=== PATIENT | female | born 1990 | race African-American/Black ===

== ENCOUNTER 2017-01-24 18:27 | Emergency (ER) | payer OTHER ==
[~2017-01-24] VITALS: Ht 160 cm; Wt 104.3 kg
[2017-01-24 19:03] VITALS: BP 163/72
--- NOTE | 2017-01-24 19:12 | PHYS DOC ---
Past Medical History Past Medical History: No Pertinent History Past Surgical History: No Surgical History Alcohol Use: None Drug Use: None Adult General Chief Complaint Chief Complaint: ANKLE PROBLEM HPI HPI Patient is a 27 year old female presents to the emergency department with complaints of left ankle and left calcaneus pain. Patient states she was sitting in a folding laundry yesterday when it gave out and she fell on the left lower extremity. She states that she's had pain since that time. She is here now seeking further evaluation Review of Systems Review of Systems Constitutional: Denies fever or chills [] Eyes: Denies change in visual acuity, redness, or eye pain [] HENT: Denies nasal congestion or sore throat [] Respiratory: Denies cough or shortness of breath [] Cardiovascular: No additional information not addressed in HPI [] GI: Denies abdominal pain, nausea, vomiting, bloody stools or diarrhea [] : Denies dysuria or hematuria [] Musculoskeletal: Left ankle and left foot pain Integument: Denies rash or skin lesions [] Neurologic: Denies headache, focal weakness or sensory changes [] Endocrine: Denies polyuria or polydipsia [] Current Medications Current Medications Current Medications Medications (Trade) Dose Ordered Sig/Caty Start Time Stop Time Status Last Admin Dose Admin Naproxen (Naprosyn) 500 mg STAT ONCE 01/24/17 19:15 01/24/17 19:16 DC 01/24/17 19:19 500 MG Allergies Allergies Allergies Coded Allergies Type Severity Reaction Last Updated Verified No Known Drug Allergies 01/24/17 No Physical Exam Physical Exam Constitutional: Well developed, well nourished, no acute distress, non-toxic appearance. [] Neck: Normal range of motion, no tenderness, supple, no stridor. [] Cardiovascular:Heart rate regular rhythm, no murmur [] Lungs & Thorax: Bilateral breath sounds clear to auscultation [] Abdomen: Bowel sounds normal, soft, no tenderness, no masses, no pulsatile masses. [] Skin: Warm, dry, no erythema, no rash. [] Back: No tenderness, no CVA tenderness. [] Extremities: Left lower extremity exam: Left knee exam unremarkable. Left ankle without swelling or ecchymosis. Mild tenderness to palpate over the lateral malleolus. She does have tenderness to palpate over the calcaneus, Achilles tendon is intact. Neurovascular intact distally. Neurologic: Alert and oriented X 3, normal motor function, normal sensory function, no focal deficits noted. [] Current Patient Data Vital Signs Vital Signs Date Time Temp Pulse Resp B/P (MAP) Pulse Ox O2 Delivery O2 Flow Rate FiO2 01/24/17 19:03 98.2 73 18 98 Room Air 98.2 EKG EKG [] Radiology/Procedures Radiology/Procedures Left ankle and left calcaneus negative for acute bony abnormality[] Course & Med Decision Making Course & Med Decision Making Pertinent Labs and Imaging studies reviewed. (See chart for details) []She'll be discharged with Richard bandage and crutches for weightbearing as tolerated. She'll be given Naprosyn 500 mg one by mouth twice a day when necessary for pain. Follow-up with her primary care provider in 5-7 days, sooner if problems arise. Dragon Disclaimer Dragon Disclaimer This electronic medical record was generated, in whole or in part, using a voice recognition dictation system. Departure Departure Impression: Primary Impression: Ankle sprain Additional Impression: Contusion, foot Disposition: 01 HOME, SELF-CARE Condition: STABLE Referrals: [facility] Patient Instructions: Ankle Sprain, Contusion, Elastic Bandage and RICE Additional Instructions: Be used for weightbearing as tolerated. Scripts Naproxen (NAPROSYN) 500 Mg Tablet 500 MG PO BID Y for PAIN, #20 TAB Prov: CASI COPELAND APRN 01/24/17 Problem Qualifiers Primary Impression: Ankle sprain Encounter type: initial encounter Involved ligament of ankle: unspecified ligament Laterality: left Qualified Codes: S93.402A - Sprain of unspecified ligament of left ankle, initial encounter Additional Impression: Contusion, foot Encounter type: initial encounter Laterality: left Qualified Codes: S90.32XA - Contusion of left foot, initial encounter CASI COPELAND APRN Jan 24, 2017 19:12
[2017-01-24] MEDS ORDERED: NAPROXEN 500 MG TABLET PO ONE (19:15)
[2017-01-24] MEDS ORDERED: NAPR500T PO (20:04)
--- NOTE | 2017-01-25 08:13 | RAD ---
Indication fall, pain. AP and lateral views of the left calcaneus were obtained. No bony abnormality is seen
--- NOTE | 2017-01-25 08:17 | RAD ---
Indication fall, pain. AP oblique and lateral views of the left ankle were obtained. No bony abnormality is seen
== END 2017-01-24 20:12 | disposition home or self-care (01) ==
LOC: ER 18:27
DX: S93.402A Sprain of unspecified ligament of left ankle, initial encounter (principal); W18.39XA Other fall on same level, initial encounter; Y99.8 Other external cause status; Y93.89 Activity, other specified; Y92.89 Other specified places as the place of occurrence of the external cause
CPT/HCPCS: 73610; 73650; 99284

== ENCOUNTER 2017-03-02 17:53 | Emergency (ER) | payer OTHER ==
[~2017-03-02] VITALS: Ht 162.6 cm; Wt 104.3 kg
[~2017-03-02 17:53] MED LIST: NAPR500T PO
[2017-03-02] MEDS ORDERED: PROAIR RESPICL90 MCG IH (18:38)
[2017-03-02] MEDS ORDERED: AZIT250T6 PO (18:38)
[2017-03-02] MEDS ORDERED: PRED50TA PO (18:38)
[2017-03-02] MEDS ORDERED: BENZ100C PO (18:38)
--- NOTE | 2017-03-02 18:38 | PHYS DOC ---
Past Medical History Past Medical History: No Pertinent History Past Surgical History: No Surgical History Alcohol Use: None Drug Use: None Adult General Chief Complaint Chief Complaint: SORE THROAT HPI HPI Patient is a 27 year old female who presents with a sore throat and coughing for 2 weeks. Patient has history of smoking. Patient denies any fever. Review of Systems Review of Systems Constitutional: Denies fever or chills [] Eyes: Denies change in visual acuity, redness, or eye pain [] HENT: sore throat []Denies nasal congestion Respiratory: Reports cough denies shortness of breath [] Cardiovascular: No additional information not addressed in HPI [] GI: Denies abdominal pain, nausea, vomiting, bloody stools or diarrhea [] : Denies dysuria or hematuria [] Musculoskeletal: Denies back pain or joint pain [] Integument: Denies rash or skin lesions [] Neurologic: Denies headache, focal weakness or sensory changes [] All other systems were reviewed and found to be within normal limits, except as documented in this note. Allergies Allergies Allergies Coded Allergies Type Severity Reaction Last Updated Verified No Known Drug Allergies 01/24/17 No Physical Exam Physical Exam Constitutional: Well developed, well nourished, no acute distress, non-toxic appearance. [] HENT: Normocephalic, atraumatic, bilateral external ears normal, oropharynx moist, no oral exudates, nose normal. Posterior fornix with mild erythema, her voice is hoarse Eyes: PERRLA, EOMI, conjunctiva normal, no discharge. [] Neck: Normal range of motion, no tenderness, supple, no stridor. [] Cardiovascular:Heart rate regular rhythm, no murmur [] Lungs & Thorax: Bilateral breath sounds clear to auscultation [] Abdomen: Bowel sounds normal, soft, no tenderness, no masses, no pulsatile masses. [] Skin: Warm, dry, no erythema, no rash. [] Back: No tenderness, no CVA tenderness. [] Extremities: No tenderness, no cyanosis, no clubbing, ROM intact, no edema. [] Neurologic: Alert and oriented X 3, normal motor function, normal sensory function, no focal deficits noted. [] Psychologic: Affect normal, judgement normal, mood normal. [] Current Patient Data Vital Signs Vital Signs Date Time Temp Pulse Resp B/P (MAP) Pulse Ox O2 Delivery O2 Flow Rate FiO2 03/02/17 17:58 98.5 86 18 97 Room Air 98.5 EKG EKG [] Radiology/Procedures Radiology/Procedures [] Course & Med Decision Making Course & Med Decision Making Pertinent Labs and Imaging studies reviewed. (See chart for details) Patient has laryngitis, pharyngitis and bronchitis. Negative rapid strep. Discharged with azithromycin albuterol inhaler Tessalon Perles and prednisone for 5 days. Encouraged to consider smoking cessation. Dragon Disclaimer Dragon Disclaimer This electronic medical record was generated, in whole or in part, using a voice recognition dictation system. Departure Departure Impression: Primary Impression: Laryngitis, acute Additional Impressions: Acute pharyngitis Acute bronchitis Smoking addiction Disposition: 01 HOME, SELF-CARE Condition: STABLE Referrals: NO PCP (PCP) follow uip with your doctor in one week Patient Instructions: Acute Bronchitis, [id number], Laryngitis, [id number] , Smoking Cessation, Viral and Bacterial Pharyngitis Additional Instructions: You were seen for laryngitis, pharyngitis and bronchitis. Consider smoking cessation. Take the prescribed medications as ordered. Use saltwater gargles for sore throat. Take Tylenol or Motrin for pain or fever. Scripts Azithromycin (AZITHROMYCIN TABLET) 250 Mg Tablet 1 PKG PO UD, #6 TAB Prov: ERICH SANDOVAL APRN 03/02/17 Prednisone (PREDNISONE) 50 Mg Tablet 1 TAB PO DAILY, #5 TAB Prov: ERICH SANDOVAL APRN 03/02/17 Benzonatate (TESSALON PERLE) 100 Mg Capsule 1 CAP PO TID, #30 CAP Prov: ERICH SANDOVAL APRN 03/02/17 Albuterol Sulfate (Proair Respiclick) 90 Mcg Aer.pow.ba 1 PUFF IH PRN Q6HRS Y for SHORTNESS OF BREATH, #1 INHALER Prov: ERICH SANDOVAL APRN 03/02/17 Problem Qualifiers Additional Impressions: Acute pharyngitis Pharyngitis/tonsillitis etiology: unspecified etiology Qualified Codes: J02.9 - Acute pharyngitis, unspecified Acute bronchitis Bronchitis organism: unspecified organism Qualified Codes: J20.9 - Acute bronchitis, unspecified ERICH SANDOVAL APRN Mar 02, 2017 18:38
[2017-03-03 07:38] LABS: NEGATIVE OBC STREP NEG; POSITIVE OBC STREP POS
== END 2017-03-02 18:49 | disposition home or self-care (01) ==
LOC: ER 17:53
DX: J20.9 Acute bronchitis, unspecified (principal); J04.0 Acute laryngitis; J02.9 Acute pharyngitis, unspecified; F17.200 Nicotine dependence, unspecified, uncomplicated; Z87.891 Personal history of nicotine dependence
CPT/HCPCS: 87070; 87880; 99283

== ENCOUNTER 2017-09-06 15:59 | Emergency (ER) | payer SELFPAY, OTHER ==
[2017-09-06 16:16] LABS: URINE HCG POC HCG NEGATIVE (Negative)
[2017-09-06] MEDS: IV NORMAL SALINE 1000ML BAG 1,000 ML IV (16:54)
[2017-09-06] MEDS: KETOROLAC 30 MG/ML INJ. IV (16:55)
[2017-09-06] MEDS: METOCLOPRAMIDE HCL 10 MG/2 ML VIAL. IV (16:55)
[2017-09-06] MEDS: diphenhydrAMINE 50 MG/ML VIAL IVP (16:55)
== END 2017-09-06 17:40 | disposition home or self-care (01) ==
LOC: ER 15:59
DX: G43.909 Migraine, unspecified, not intractable, without status migrainosus (principal)
CPT/HCPCS: 81025; 96361; 96374; 96375; 99284-25; J1200; J1885; J2765; J7030